=== PATIENT | female | born 1980 | race Caucasian/White ===

== ENCOUNTER 2022-10-24 09:25 | Emergency (ER) | payer MEDICARE, MEDICAID, SELFPAY ==
--- NOTE | ~2022-10-24 | CT_ITS ---
CT of the Abdomen and Pelvis: Indication: Abdominal pain Technique: 2.5 mm axial scans were obtained through the abdomen and pelvis following intravenous adm inistration of 100 cc of Omnipaque 350. Dose reduction technique was used on this scan by utilizing a utomated exposure control and iterative reconstruction technique. The dose-length product (DLP) was 8 31.69 mGy-cm. Findings: Scans through the lung bases are unremarkable. The liver, spleen, pancreas, gallbladder, adrenals and kidneys are within normal limits. No evidence of aortic aneurysm. No lymphadenopathy. No bowel obstruction or bowel wall thickening. There is no evidence to suggest acute appendicitis. Images through the pelvis were performed. Urinary bladder unremarkable. No adnexal mass evident. No a scites. Impression: No significant abnormalities seen. Reviewed, dictated and finalized at [facility]. Impression: No significant abnormalities seen.
--- NOTE | ~2022-10-24 | CT_ITS ---
Non-contrast Head CT History: Altered mental status Technique: Axial non-contrast imaging of the brain was performed. Dose reduction technique was used on this scan by utilizing automated exposure control and iterative reconstruction technique. The dose -length product (DLP) was 832.33 mGy-cm. Findings: There is no evidence of intracranial hemorrhage, mass lesion, or acute infarct. Hyperdensi ty along the falx tentorium and falx cerebri is related to contrast enhancement from prior contrast e nhanced CT earlier today. Brain parenchyma appears normal. The ventricles and subarachnoid spaces ar e normal in size. The calvarium appears normal. The visualized paranasal sinuses and mastoid air ce lls are clear. Impression: No significant abnormality seen. There is mild motion artifact at the skull base region. Reviewed, dictated and finalized at location . Impression: No significant abnormality seen. There is mild motion artifact at the skull bas e region.
[2022-10-24 09:38] VITALS: BP 166/65; PULSE 110; RESP 16; TEMP 36.4; O2SAT 100
--- NOTE | 2022-10-24 09:45 | ED.FEMALEGU ---
HPI - Female Genitourinary General Chief complaint: Urogenital-Female Stated complaint: uti? Time Seen by Provider: 10/24/22 09:28 Source: patient and family Mode of arrival: ambulatory Limitations: clinical condition History of Present Illness HPI Narrative: Patient is a 42 y/o female, with PMH of cerebral palsy and intellectual disability, who presents to the ED with c/o agitation. Patient unable to provide any useful information given her medical conditions, history provided by caregiver at bedside. Patient lives at [facility]. Caregiver reports patient has had increased agitation/screaming/abnormal behaviors over the last 2 weeks. They thought she may have a UTI and was prophylactically started on Macrobid. She finished the antibiotics this morning, but the behaviors have not changed since being on the antibiotics. Patient occasionally points to her abdomen when asked where she has pain. Staff has not noticed any vomiting, fevers, abnormal BMs, foul smelling urine, hematuria. They are unsure of when her last BM was and notes she has a Hx of constipation. Related Data Home Medications Medication Instructions Recorded Confirmed divalproex 250 mg tablet,delayed mg PO 10/24/22 10/24/22 release medroxyprogesterone 150 mg/mL mg IM 10/24/22 intramuscular syringe quetiapine 200 mg tablet mg 10/24/22 quetiapine 50 mg tablet mg 10/24/22 venlafaxine 75 mg tablet mg 10/24/22 Allergies Allergy/AdvReac Type Severity Reaction Status Date / Time No Known Allergies Allergy Verified 10/24/22 09:53 Review of Systems Review of Systems: ROS unobtainable: Yes unobtainable due to medical condition and unobtainable due to mental status PMFSH Past Medical History Medical History (Updated 10/24/22 @ 17:05 by Richa Wright PA-C) Cerebral palsy Intellectual disability Exam Narrative: GENERAL: Well-nourished, non-toxic, in no acute distress. HEAD: Normocephalic, atraumatic. EYES: PERRLA/EOMI, conjunctiva clear. NECK: Supple. No adenopathy, no masses. RESPIRATORY: Airway patent, respirations nonlabored. Clear to auscultation bilaterally, no rales, rhonchi, wheezing. No focal lung sounds. CARDIOVASCULAR: Borderline tachycardic with regular rhythm without murmurs, rubs, or gallops. Radial pulses 2+ and equal bilaterally. ABDOMINAL: Soft, unable to appreciate any tenderness throughout the abdomen, nondistended, no hepatosplenomegaly. Normoactive BS. MUSCULOSKELETAL: Moves all extremities. No gross deformities. SKIN: Warm, dry, normal color. No rashes. NEURO: Alert, follows some commands. Speech garbled and incoherent, patient's baseline per caregiver. Patient occasionally yells out when attempting to perform any tasks, easily consoled. Steady gait. No ataxic movements. No gross neurologic deficits. PSYCHIATRIC: Appropriate mood and affect. Normal interaction. Course Vital Signs Vital signs: Vital Signs Temperature 97.6 F 10/24/22 09:38 Pulse Rate 110 H 10/24/22 09:38 Respiratory Rate 16 10/24/22 09:38 Blood Pressure 166/65 H 10/24/22 09:38 Pulse Oximetry 100 10/24/22 09:38 Oxygen Delivery Room Air 10/24/22 09:38 Temperature 97.6 F 10/24/22 09:38 Pulse Rate 100 10/24/22 13:26 Respiratory Rate 20 10/24/22 13:26 Blood Pressure 127/91 H 10/24/22 13:26 Pulse Oximetry 100 10/24/22 13:26 Oxygen Delivery Room Air 10/24/22 09:38 MDM - Female Genitourinary MDM Narrative Medical decision making narrative: Patient presented to ED with concern for UTI, history of cerebral palsy/intellectual disability, presents with caregiver who provided information. Patient hypertensive and tachycardic upon arrival. These did improve throughout ED stay without intervention. Straight cath urinalysis revealed trace ketones, no signs of infection. Patient given dose of Ativan to allow for blood work to be drawn. Caregiver did report that patient often has to be sed
[2022-10-24] MEDS: LORazepam INJ (*CRX) 2 MG/ML VIAL 1 MG IM (10:07)
[2022-10-24 10:13] LABS: Appearance Urine Clear (Clear); Bilirubin Urine Negative (Negative); Blood Urine Negative (Negative); Color Urine Yellow (Yellow); Glucose Urine UA Negative (Negative); Ketones Urine Trace mg/dL (Negative); Leukocyte Esterase Ur Negative LEU/UL (Negative); Nitrate Urine Negative (Negative); Protein Urine Negative (Negative); Specific Grav Ur 1.019 (1.001-1.035); Urobilinogen Urine 0.2 mg/dL (<2.0); pH Urine 6.5 (5.0-9.0)
[2022-10-24 11:00] LABS: Add Urine Microscopic? NO
[2022-10-24 11:19] LABS: Basophils Percent Auto 0.4 % (0.2-1.2); Eosinophils Absolute Auto 0.1 K/mm3 (0-0.3); Eosinophils Percent Auto 0.9 % (0-4.4); Hematocrit 45.7 % (37.0-47.0); Hemoglobin 15.2 g/dL (12.0-15.0); Immature Granulocyte Absolute 0.03 K/mm3 (0.00-0.031); Immature Granulocyte Percent A 0.4 % (0-0.5); Lymphocytes Absolute Auto 2.12 K/mm3 (0.9-3.2); Lymphocytes Percent Auto 28.7 % (18.3-44.2); Mean Corpuscular HGB Conc 33.3 g/dl (32-36); Mean Corpuscular Hemoglobin 32.1 pg (26-34); Mean Corpuscular Volume 96.6 fl (80-100); Mean Platelet Volume 9.5 fl (7.4-10.4); Monocytes Absolute Auto 0.6 K/mm3 (0.1-0.6); Monocytes Percent Auto 8.3 % (2.6-8.5); Neutrophils Absolute Auto 4.5 K/mm3 (1.3-6.7); Neutrophils Percent Auto 61.3 % (45.5-73.1); Platelet Count Result 219 k/mm3 (150-375); Red Blood Count 4.73 M/mm3 (4.2-5.4); Red Cell Distribution Width 12.3 % (11.5-14.5); White Blood Count 7.4 K/mm3 (4.5-10.0)
[2022-10-24 11:27] LABS: Pregnancy On Board Control Positive; Urine Pregnancy Test Negative
[2022-10-24 11:30] LABS: Alanine Aminotransferase 26 U/L (6-35); Albumin Level 4.1 g/dL (3.5-5.1); Alkaline Phosphatase 61 U/L (38-126); Anion Gap 6 mmol/L (8-16); Aspartate Amino Transferase 23 U/L (14-36); Bilirubin,Total 0.4 mg/dL (0.2-1.3); Blood Urea Nitrogen 14 mg/dL (7-17); Calcium 9.1 mg/dL (8.4-10.2); Carbon Dioxide 32 mmol/L (22-30); Chloride 99 mmol/L (98-107); Estimated Glomerular Filt Rate > 60; Glucose 78 mg/dL (65-110); Potassium 4.2 mmol/L (3.4-5.0); Sodium 137 mmol/L (137-145)
[2022-10-24] MEDS: LORazepam INJ (*CRX) 2 MG/ML VIAL 1 MG IV PUSH ×2 (11:54→13:07)
--- NOTE | 2022-10-24 11:55 | PC.NURSE ---
pt was taken to CAT scan but was too agitated and had to be returned. orders in for ativan given. pt in stretcher.
[2022-10-24 13:26] VITALS: BP 127/91; PULSE 100; RESP 20; O2SAT 100
== END 2022-10-24 14:24 ==
PROVIDERS: Emergency Provider Physician Assistant; PCP Family Medicine
DX: R45.1 Restlessness and agitation (principal); G80.9 Cerebral palsy, unspecified; F79 Unspecified intellectual disabilities
CPT/HCPCS: 36415; 70450; 74177; 80053; 81003; 81025; 85025; 96372; 96374; 96376; 99284; J2060; Q9967

== ENCOUNTER 2023-10-28 11:07 | Emergency (ER) | payer MEDICARE, SELFPAY ==
--- NOTE | ~2023-10-28 | XR_ITS ---
EXAMINATION: XR hand RT min 3V DATE: 10/28/2023 11:36 INDICATION: Right hand pain and swelling. TECHNIQUE: 3 views of right hand were obtained. COMPARISON: None. FINDINGS: There is an oblique fracture of diaphysis of fourth metacarpal. The distal fracture fragmen t demonstrates 2 mm radial displacement, 4 mm palmar displacement, and shortening. Joint spaces are n ormal. IMPRESSION: 1. Oblique fracture of diaphysis of fourth metacarpal. Reviewed, dictated and finalized at location A.
[2023-10-28 11:16] VITALS: BP 148/110; PULSE 89; RESP 16; TEMP 36.4; O2SAT 99
--- NOTE | 2023-10-28 11:57 | ED.UPPEXIN ---
HPI - Extremity Injury (Upper) General Chief Complaint: Extremity Injury, Upper Stated Complaint: possible broken hand Time Seen by Provider: 10/28/23 11:19 History of Present Illness HPI narrative: 43-year-old nonverbal female presents to the emergency room with caregiver from assisted living for evaluation of right hand pain and swelling. Caregiver states patient was found to have swelling to her right hand after getting on a bus to go to her place of employment. No known injury or trauma Related Data Home Medications Medication Instructions Recorded Confirmed divalproex 250 mg tablet,delayed mg PO 10/24/22 10/24/22 release medroxyprogesterone 150 mg/mL mg IM 10/24/22 intramuscular syringe quetiapine 200 mg tablet mg 10/24/22 quetiapine 50 mg tablet mg 10/24/22 venlafaxine 75 mg tablet mg 10/24/22 Allergies Allergy/AdvReac Type Severity Reaction Status Date / Time No Known Allergies Allergy Verified 10/28/23 11:19 Review of Systems Review of Systems: ROS unremarkable except for noted in HPI PMFSH Past Medical History Medical History Cerebral palsy Intellectual disability Exam Narrative: GENERAL: Well-appearing, well-nourished, no physical limitations, and in no acute distress. HEAD: Normocephalic, atraumatic. EYES: Conjunctivae normal, PERRLA and EOMI. CHEST: Clear to auscultation. No respiratory distress. No wheezes rales or rhonchi. HEART: Regular rate and rhythm. No murmur heard. Normal peripheral pulses. ABDOMEN: Soft, nontender, nondistended, normal active bowel sounds. EXTREMITIES: Right hand: STS, +TTP and ecchymosis noted to right hand; pain more notable over the 4th and 5th metacarpals SKIN: Warm, dry, no rash. No noted wounds NEURO: No focal deficits. Alert and oriented x3. MAEW. CN's II-XI intact bilaterally, normal gait PSYCH: Cooperative. Normal mood and affect. Course Vital Signs Vital signs: Vital Signs Temperature 36.4 C 10/28/23 11:16 Pulse Rate 89 10/28/23 11:16 Respiratory Rate 16 10/28/23 11:16 Blood Pressure 148/110 H 10/28/23 11:16 Pulse Oximetry 99 10/28/23 11:16 Oxygen Delivery Room Air 10/28/23 11:16 Temperature 36.4 C 10/28/23 11:16 Pulse Rate 89 10/28/23 11:16 Respiratory Rate 16 10/28/23 11:16 Blood Pressure 148/110 H 10/28/23 11:16 Pulse Oximetry 99 10/28/23 11:16 Oxygen Delivery Room Air 10/28/23 11:16 MDM - Extremity Injury (Upper) Imaging Data Radiologist's impression: Impressions Hand X-Ray 10/28/23 11:41 IMPRESSION: 1. Oblique fracture of diaphysis of fourth metacarpal. Discharge Plan Discharge Clinical Impression: Closed right hand fracture Patient Disposition: Home, Self-Care Condition: Stable Instructions: Antibiotic Form, Hand Fracture (ED), Boxer Fracture (ED) Prescriptions: New naproxen 500 mg tablet 500 mg PO BID Qty: 20 0RF No Action venlafaxine 75 mg tablet divalproex 250 mg tablet,delayed release (DR/EC) PO quetiapine 200 mg tablet medroxyprogesterone 150 mg/mL syringe IM quetiapine 50 mg tablet Follow-up/Referrals: Jung Gonzalez MD [Physician] - [facility],MD Lukasz [Primary Care Provider] - Time of Disposition: 12:02
== END 2023-10-28 12:46 ==
PROVIDERS: Emergency Provider Nurse Practitioner Family; PCP Family Medicine
DX: S62.394A Other fracture of fourth metacarpal bone, right hand, initial encounter for closed fracture (principal); G80.9 Cerebral palsy, unspecified; F79 Unspecified intellectual disabilities; Z79.899 Other long term (current) drug therapy; X58.XXXA Exposure to other specified factors, initial encounter
CPT/HCPCS: 29125; 73130; 99284; A4565